=== PATIENT | female | born 1955 | race Caucasian/White ===

== ENCOUNTER → 2016-12-19 | Outpatient (CLI) | payer OTHER | LOC: FIMAGING 15:48 | DX: Z12.31 Encounter for screening mammogram for malignant neoplasm of breast (principal); Z80.3 Family history of malignant neoplasm of breast | CPT/HCPCS: G0202 ==

== ENCOUNTER → 2017-10-11 | Outpatient (CLI) | payer OTHER | LOC: BMCIMAGING 15:51 | PROVIDERS: ATTEND Internal Medicine | DX: Z13.820 Encounter for screening for osteoporosis (principal); M85.89 Other specified disorders of bone density and structure, multiple sites ==

== ENCOUNTER → 2017-10-12 | Outpatient (CLI) | payer OTHER | LOC: FIMAGING 13:31 | PROVIDERS: ATTEND Internal Medicine | DX: N63.20 Unspecified lump in the left breast, unspecified quadrant (principal) ==

== ENCOUNTER → 2017-11-09 | Outpatient (CLI) | payer OTHER ==
[~2017-11-09] MED LIST: GADOBUTROL 10 ML VIAL IVP ONE
== END ==
LOC: FIMAGING 15:25
PROVIDERS: ATTEND Internal Medicine Cardiovascular Disease
DX: I71.2 Thoracic aortic aneurysm, without rupture (principal)
CPT/HCPCS: A9585; C8909

== ENCOUNTER → 2018-10-31 | Outpatient (CLI) | payer OTHER | LOC: FIMAGING 16:00 | PROVIDERS: ATTEND Internal Medicine | DX: Z12.31 Encounter for screening mammogram for malignant neoplasm of breast (principal); Z80.3 Family history of malignant neoplasm of breast ==

== ENCOUNTER 2019-01-02 15:16 | Emergency (ER) | payer OTHER ==
--- NOTE | 2019-01-02 15:30 | EDPHY ---
H & P Time Seen by Provider: 01/02/19 15:30 HPI/ROS: Chief complaint. Chest pain HPI. 63-year-old female with left-sided chest pain present on awakening this morning. She felt she could not take a full deep breath. Her discomfort was worse with deep breathing. She initially had tightness in the left upper chest and now it seems to be left lower chest. Some radiation to left arm. It is also worse with exertion. No fever cough. No unusual leg swelling however pain right posterior calf. She has a known bicuspid aortic valve an enlarged aorta. It was last evaluated more than 1 year ago. She has no history of hypertension or diabetes. Talked with PCP and referred to the ED ROS 10 systems were reviewed and negative with the exception of the elements mentioned in the history of present illness Past Medical/Surgical History: Bicuspid aortic valve, enlarged ascending aorta Family history father also has bicuspid valve and has had 2 heart valve surgeries. Sisters with electrical cardiac issues that manifested syncope. No AK in near relatives Social History: , nonsmoker, no alcohol Smoking Status: Never smoked Physical Exam: General Appearance: Alert pleasant well-developed female mild distress vital signs are stable Eyes: Pupils equal and round no pallor or injection. ENT, Mouth: Mucous membranes are moist. Respiratory: There are no retractions, lungs are clear to auscultation. Cardiovascular: Regular rate and rhythm. Gastrointestinal: Abdomen is soft and nontender, no masses, bowel sounds normal. Neurological: Awake and alert, sensory and motor exams grossly normal. Skin: Warm and dry, no rashes. Musculoskeletal: Neck is supple nontender. Extremities symmetrical, full range of motion. Psychiatric: Patient is oriented X 3, there is no agitation. Constitutional: Initial Vital Signs Temperature (C) 36.4 C 01/02/19 15:19 Heart Rate 72 01/02/19 15:19 Respiratory Rate 16 01/02/19 15:19 Blood Pressure 119/82 H 01/02/19 15:19 O2 Sat (%) 97 01/02/19 15:19 O2 Delivery Mode Room Air Allergies/Adverse Reactions: ciprofloxacin [From Cipro] Allergy (Verified 01/02/19 15:18) Home Medications: Medication Instructions Recorded NK [No Known Home Meds] 01/02/19 Medical Decision Making - Diagnostics EKG Interpretation: EKG interpreted by me shows normal sinus rhythm normal interval and axis. QRS is normal there is no significant ST elevation or depression. No arrhythmia. The rate is 65 Imaging Results: Imaging Impressions Chest X-Ray 01/02/19 15:54 Impression: Clear lungs. Negative portable chest. Extremity Venous Study 01/02/19 16:09 Impression: No deep venous thrombosis right leg. Findings and recommendations given to ALESSANDRA FLORES at 17:03 hour, 01/02/2019. Final report concurs with initial preliminary interpretation. Chest/Thorax CTA 01/02/19 16:10 Impression: 1. Negative for acute pulmonary embolus. 2. Ascending aortic aneurysm measuring 4.2 x 4.0 cm. Recommend continued follow- up. 3. Groundglass nodule measuring 6.2 mm in the right upper lobe is similar to the 2013 examination and likely benign. Findings and recommendations discussed with ALESSANDRA FLORES at 1735 hour, 2018. Ultrasound right lower extremity negative for DVT Chest CT negative for pulmonary embolus. Ascending aortic aneurysm. Procedures: IV normal saline, monitor ED Course/Re-evaluation: CT angiogram is ordered as the patient has had difficulty taking deep breath with increased pain taking deep breath. She has an elevated D-dimer. She also has complained of right calf pain Re-evaluation at 6:30 p.m. Patient is stable. She and I discussed the imaging and lab results. We discussed treatment plan including recommendation for admission. She says I am really feeling quite well and I would rather follow up as an outpatient. We discussed risks and benefits of this plan. She expresses understanding and agreement. We will have her seen by Cardiology in the next 2 days. Differential Diagnosis: I considered aortic dissection, aortic aneurysm, acute coronary syndrome, pulmonary embolus, pneumonia - Data Points Laboratory Results: Laboratory Results 01/02/19 15:35 01/02/19 15:35 01/02/19 01/02/19 01/02/19 15:35 15:35 15:35 WBC RBC Hgb Hct MCV MCH MCHC RDW Plt Count MPV Neut % (Auto) Lymph % (Auto) [place] % (Auto) Eos % (Auto) Baso % (Auto) Nucleat RBC Rel Count Absolute Neuts (auto) Absolute Lymphs (auto) Absolute Monos (auto) Absolute Eos (auto) Absolute Basos (auto) Absolute Nucleated RBC Immature Gran % Immature Gran # D-Dimer 0.78 ug/mLFEU H ug/mLFEU (0.00-0.50) Sodium 138 mEq/L mEq/L (135-145) Potassium 4.4 mEq/L mEq/L (3.5-5.2) Chloride 103 mEq/L mEq/L (97-110) Carbon Dioxide 26 mEq/l mEq/l (22-31) Anion Gap 9 mEq/L mEq/L (6-14) BUN 14 mg/dL mg/dL (7-23) Creatinine 0.7 mg/dL mg/dL (0.6-1.0) Estimated GFR > 60 Glucose 87 mg/dL mg/dL (70-100) Calcium 9.7 mg/dL mg/dL (8.5-10.4) POC Troponin I 0.00 ng/mL ng/mL (0.00-0.08) 01/02/19 15:35 WBC 6.90 10^3/uL 10^3/uL (3.80-9.50) RBC 4.56 10^6/uL 10^6/uL (4.18-5.33) Hgb 13.7 g/dL g/dL (12.6-16.3) Hct 40.5 % % (38.0-47.0) MCV 88.8 fL fL (81.5-99.8) MCH 30.0 pg pg (27.9-34.1) MCHC 33.8 g/dL g/dL (32.4-36.7) RDW 12.1 % % (11.5-15.2) Plt Count 275 10^3/uL 10^3/uL (150-400) MPV 9.4 fL fL (8.7-11.7) Neut % (Auto) 58.1 % % (39.3-74.2) Lymph % (Auto) 29.6 % % (15.0-45.0) [place] % (Auto) 6.7 % % (4.5-13.0) Eos % (Auto) 4.6 % % (0.6-7.6) Baso % (Auto) 0.9 % % (0.3-1.7) Nucleat RBC Rel Count 0.0 % % (0.0-0.2) Absolute Neuts (auto) 4.01 10^3/uL 10^3/uL (1.70-6.50) Absolute Lymphs (auto) 2.04 10^3/uL 10^3/uL (1.00-3.00) Absolute Monos (auto) 0.46 10^3/uL 10^3/uL (0.30-0.80) Absolute Eos (auto) 0.32 10^3/uL 10^3/uL (0.03-0.40) Absolute Basos (auto) 0.06 10^3/uL 10^3/uL (0.02-0.10) Absolute Nucleated RBC 0.00 10^3/uL 10^3/uL (0-0.01) Immature Gran % 0.1 % % (0.0-1.1) Immature Gran # 0.01 10^3/uL 10^3/uL (0.00-0.10) D-Dimer Sodium Potassium Chloride Carbon Dioxide Anion Gap BUN Creatinine Estimated GFR Glucose Calcium POC Troponin I Medications Given: Discontinued Medications Sodium Chloride (Ns) 1,000 mls @ 0 mls/hr IV ONCE ONE; Wide Open PRN Reason: Protocol Stop: 01/02/19 16:10 Last Admin: 01/02/19 16:19 Dose: 1,000 mls Point of Care Test Results: Chemistry 01/02/19 15:35 POC Troponin I 0.00 ng/mL ng/mL (0.00-0.08) Departure - Departure Disposition: Home, Routine, Self-Care Clinical Impression: Chest pain Qualifiers: Chest pain type: unspecified Qualified Code(s): R07.9 - Chest pain, unspecified Condition: Good Instructions: Chest Pain (ED) Additional Instructions: Easy activity Return for worsening chest discomfort or trouble breathing Call Cardiology tomorrow to arrange further evaluation. I am giving you the name of Dr. Strong but any of the rug dry room attendant will due for a start Referrals: Kylie Piper MD [Primary Care Provider] - As per Instructions Benjamin Strong MD [Medical Doctor] - 1-2 days without fail
[2019-01-02 15:49] LABS: PLATELET COUNT 275 10^3/uL (150-400)
--- NOTE | 2019-01-02 16:08 | CPEKG ---
Test Reason : OPEN Blood Pressure : / mmHG Vent. Rate : 065 BPM Atrial Rate : 065 BPM P-R Int : 200 ms QRS Dur : 097 ms QT Int : 426 ms P-R-T Axes : 083 047 056 degrees QTc Int : 443 ms Sinus rhythm Confirmed by Wild Dejesus ([id number]) on 01/02/2019 4:08:11 PM Referred By: Wild Dejesus Confirmed By:Wild Dejesus
[2019-01-02] MEDS ORDERED: NS 1,000 ML IV ONE (16:09)
[2019-01-02] MEDS ORDERED: IOPAMIDOL (ISOVUE 370) 100 ML BTL IV ONE (16:31)
--- NOTE | 2019-01-02 17:01 | ECHO ---
[email or web address] [address] Main: [phone] Echocardiography Examination Transthoracic Name: NIKOLAI POLLARD MR#: [id number] Study Date: 01/02/2019 Study Time: 04:07 PM Date of : 1955 Age: 63 year(s) Height: 175.3 cm (69 in.) Weight: 65.77 kg (145 lb.) BSA: 1.8 m2 Gender: Female Examination: Echo Contrast: Image Quality: Adequate Rhythm: Heart Rate: BP: 129 mmHg/59 mmHg Indication: Chest Pain Procedure Staff Referring Physician: Medical Affairs Specialist: Viki Galindo [facility] Reading Physician: Young Francois MD Requesting Provider: Indication: Chest Pain Measurements Chambers AV/MV Label Value Normal Value Label Value Normal Value LVOT Vmax 0.79 m/s (0.7m/s - 1.1m/s) AV PGmax 12 mmHg LVOTd 2 cm (1.8cm - 2cm) AV PGmean 7 mmHg LVOT VTI 18.1 cm (18cm - 22cm) AV Vmax 1.74 m/s LVDd, 2D 4.2 cm (3.9cm - 5.3cm) KARTHIK (Vmax) 1.4 cm2 LVDs, 2D 2.8 cm (2.1cm - 4cm) KARTHIK (VTI) 1.4 cm2 IVSd, 2D 0.7 cm (0.6cm - 1.1cm) MV E Vmax 0.82 m/s LVPWd, 2D 0.8 cm MV A Vmax 0.49 m/s LVEF, BP 63 % (55% - 70%) MV E/A 1.67 LVEF, 2D 61 % (54% - 74%) MV E/E' lateral 7.4 LVOT PGmean 2 mmHg MV E/E' septal 7.7 (0.45 - 1.25) LVOT Vmean 0.57 m/s MV DT 257 ms RVDd, 2D 2.5 cm (1.9cm - 3.8cm) MV E' septal 0.11 m/s LADs, 2D 3 cm (2.7cm - 3.8cm) MV PHT 0.07 s Additional Vessels MVA PHT 3 cm2 Label Value Normal Value MV E' lateral 0.11 m/s AoAsc 4.1 cm MV E/E' mean 7.45 AoRoot, 2D 2.9 cm (1.4cm - 2.6cm) MV PHT 73 ms IVC 2.1 cm (1.2cm - 2.3cm) MV E' mean 0.11 m/s TV/PV Label Value Normal Value Patient: NIKOLAI POLLARD Study Date: 01/02/2019 Page 1 of 3 04:07 PM RA Pressure 5 mmHg RVSP 21 mmHg TR Pmax 16 mmHg TR Vmax 2.02 m/s PV PGmax 2 mmHg PV Vmax, Caliper 0.66 m/s (0.6m/s - 0.9m/s) Conclusions 1. The left ventricle is normal in size and function. The ejection fraction is 63%. 2. The mitral valve is normal in structure. There is trivial mitral regurgitation. 3. The aortic valve is not well seen but appears to be bicuspid. There is no aortic stenosis. There is trivial aortic insufficiency. 4. The ascending aorta is dilated at 4.1 cm. 5. The pulmonary artery pressure estimate is within normal limits. 6. No old studies for comparison. Findings Left Ventricle: Left ventricle is normal in size. Normal global systolic left ventricular function. The ejection fraction, measured by Simpsons method, is 63 %. EF range is estimated at 60 % - 65 %. Left ventricle wall thickness is normal. There are no regional wall motion abnormalities. Left ventricular diastolic function parameters are normal. No LV hypertrophy. Right Ventricle: Normal size right ventricle. Right ventricular systolic function is normal. Left Atrium: The left atrium is normal in size. Right Atrium: The right atrium is normal in size. Mitral Valve: Mitral valve appears structurally normal. Trivial mitral regurgitation. No mitral valve stenosis. Aortic Valve: Trivial aortic regurgitation is present. There is no aortic stenosis. The aortic valve is possibly bicuspid. Tricuspid Valve: Tricuspid valve leaflets are structurally normal. Mild tricuspid regurgitation. No tricuspid valve stenosis. Right Ventricular systolic pressure is measured at 21 mmHg. Pulmonary artery pressure normal. Pulmonic Valve: Pulmonic leaflets are structurally normal. Aorta: The aortic root size in 2D measures 2.9 cm. The ascending aorta measures 4.1 cm. Mild dilatation of the ascending aorta. Aorta Measurements AoRoot, 2D is 2.9 cm. IVC: The inferior vena cava is normal in size. Pericardium: No pericardial effusion. Exam Details Procedure Ordered: Echo Procedure Status: Routine study Image Quality: Adequate Facility Location: Cardiac Echo 1 Patient: NIKOLAI POLLARD Study Date: 01/02/2019 Page 2 of 3 04:07 PM (No Signature Object) Patient: NIKOLAI POLLARD Study Date: 01/02/2019 Page 3 of 3 04:07 PM [id number]
[2019-01-02 18:49] VITALS: BP 114/73
== END 2019-01-02 19:04 | disposition home or self-care (01) ==
DX: I71.2 Thoracic aortic aneurysm, without rupture (principal); Q23.1 Congenital insufficiency of aortic valve; Z82.49 Family history of ischemic heart disease and other diseases of the circulatory system; R07.89 Other chest pain
CPT/HCPCS: 84484-ER; Q9967